=== PATIENT | female | born 1990 | race African-American/Black ===

== ENCOUNTER 2016-11-08 05:44 | Emergency (ER) | payer BC, OTHER ==
[2016-11-08 06:19] LABS: #Basophils 0.1 thou/uL (0.0-0.2); #Eosinphils 0.4 thou/uL (0.0-0.7); #Lymphocytes 1.9 thou/uL (1.20-3.40); #Monocytes 0.6 thou/uL (0.11-0.59); #Neutrophils 2.6 thou/uL (1.40-6.50); %Basophils 1.4 % (0.0-1.0); %Eosinophils 7.2 % (0.0-10.0); %Lymphocytes 33.4 % (21.0-51.0); %Monocytes 10.5 % (0.0-10.0); Mean Platelet Volume 6.8 fL (7.4-10.4); Red Blood Cell (RBC) Count 4.53 mill/uL (4.20-5.40); White Blood Cell (WBC) Count 5.5 thou/uL (4.8-10.8)
[2016-11-08 06:20] LABS: Crenated RBC SLIGHT = 1-5 cells (100X) (None Seen); Elliptocytes SLIGHT = 2-5 cells (100X) (0-1/hpf); Microcytosis SLIGHT = 6-15 cells (100X) (0-5/hpf); Ovalocytes SLIGHT = 2-5 cells (100X) (0-1/hpf); Tear Drops SLIGHT = 2-5 cells (100X) (0-1/hpf)
[2016-11-08 06:23] LABS: Bacteria/HPF Rare-Few HPF (None Seen); Bilirubin Negative (Negative); Blood, Urine Negative (Negative); Glucose, Urine (Dipstick) Negative (Negative); Ketone, Urine Negative (Negative); Nitrite Negative (Negative); Protein, Urine (Dipstick) Negative (Neg-Trace); RBC/HPF None Seen HPF (0-3); Squamous Epithelial 0-3 HPF (0-3); Urobilinogen 0.2 mg/dL (0.2-1.0)
[2016-11-08] MEDS ORDERED: Cephalexin 500 MG CAP ONE (06:52)
== END 2016-11-08 06:55 | disposition home or self-care (01) ==
LOC: NAV ERS 05:44
DX: O20.9 Hemorrhage in early pregnancy, unspecified (principal); O23.41 Unspecified infection of urinary tract in pregnancy, first trimester; Z3A.09 9 weeks gestation of pregnancy
CPT/HCPCS: 36415; 81003; 81015; 84702; 85025; 99284

== ENCOUNTER 2017-07-16 16:16 | Emergency (ER) | payer OTHER ==
[2017-07-16 16:43] LABS: #Basophils 0.1 thou/uL (0.0-0.2); #Eosinphils 0.3 thou/uL (0.0-0.7); #Lymphocytes 1.9 thou/uL (1.20-3.40); #Monocytes 0.5 thou/uL (0.11-0.59); #Neutrophils 2.3 thou/uL (1.40-6.50); %Basophils 1.5 % (0.0-1.0); %Eosinophils 5.8 % (0.0-10.0); %Lymphocytes 36.9 % (21.0-51.0); %Neutrophils 45.8 % (42.0-75.0); Hemoglobin 10.5 g/dL (12.0-16.0); Mean Corpuscular HGB CONC 29.5 g/dL (32.0-36.0); Mean Corpuscular Hemoglobin 23.7 pg (27.0-31.0); Mean Corpuscular Volume 80.5 fl (81.0-99.0); Mean Platelet Volume 7.5 fL (7.4-10.4); Platelet Count 264 thou/uL (130-400); RBC Distribution Width 14.5 % (11.5-14.5); White Blood Cell (WBC) Count 5.1 thou/uL (4.8-10.8)
== END 2017-07-16 17:02 | disposition home or self-care (01) ==
LOC: NAV ERS 16:16
DX: O90.81 Anemia of the puerperium (principal)
CPT/HCPCS: 85025; 99284

== ENCOUNTER 2018-01-07 09:34 | Emergency (ER) | payer OTHER ==
[2018-01-07] MEDS ORDERED: cefTRIAXone\\ROCEPHIN 250 MG VIAL ONE (10:17)
[2018-01-07] MEDS ORDERED: Azithromycin 250 MG TAB ONE (10:17)
[2018-01-07] MEDS ORDERED: cefTRIAXone\\ROCEPHIN 1 GM VIAL ONE (10:18)
[2018-01-07] MEDS ORDERED: Lidocaine 1% 20 ML MDV ONE (10:19)
[2018-01-07 10:39] LABS: Bilirubin Negative (Negative); Blood, Urine Small (Negative); Clarity Slightly Cloudy (Clear); Glucose, Urine (Dipstick) Negative (Negative); Leukocyte Trace (Negative); Nitrite Negative (Negative); Protein, Urine (Dipstick) Negative (Neg-Trace); Urobilinogen 0.2 mg/dL (0.2-1.0)
[2018-01-07 10:48] LABS: Bacteria/HPF 2+ HPF (None Seen); RBC/HPF 0-3 HPF (0-3)
[2018-01-07 18:10] LABS: HIV (1/2) Antibody/Antigen Non-Reactive (NonReactive); HIV 1/2 INDEX 0.06 S/CO (<1.00)
== END 2018-01-07 11:07 | disposition home or self-care (01) ==
LOC: NAV ERS 09:34
DX: H65.02 Acute serous otitis media, left ear (principal); Z20.2 Contact with and (suspected) exposure to infections with a predominantly sexual mode of transmission
CPT/HCPCS: 81003; 81015; 87389; 96372; J0696; J2001

== ENCOUNTER 2018-06-06 19:16 | Emergency (ER) | payer OTHER, SELFPAY ==
[2018-06-06] MEDS ORDERED: Ibuprofen 800 MG TAB ONE (19:46)
--- NOTE | 2018-06-06 20:21 | RAD ---
TWO VIEW CHEST: INDICATIONS: Left chest pain. COMPARISON: 02/15/2016 FINDINGS: There is added density of the lower chest wall bilaterally, on the frontal view, likely relating to o verlying body wall soft tissues. No obvious consolidation or effusion by lateral projection. The ca rdiac silhouette is stable. IMPRESSION: No definite acute process. POS: [facility]
== END 2018-06-06 20:25 | disposition home or self-care (01) ==
LOC: NAV ERS 19:16
DX: R07.9 Chest pain, unspecified (principal)
CPT/HCPCS: 71046; 93005

== ENCOUNTER 2018-06-08 20:50 | Emergency (ER) | payer SELFPAY ==
[2018-06-08 21:21] LABS: Bilirubin Small (Negative); Blood, Urine Negative (Negative); Clarity Clear (Clear); Glucose, Urine (Dipstick) Negative (Negative); Leukocyte Negative (Negative); Nitrite Negative (Negative); Protein, Urine (Dipstick) Negative (Neg-Trace); Specific Gravity, Urine 1.025 (1.005-1.030)
[2018-06-08 21:23] LABS: Pregnancy Test - Urine (BHCG) Negative (Negative); Pregu Control Background? CLEAR/WHITE (CLR/WHITE); Pregu Control Bar Appear? YES (CONTROL BAR); Specific Gravity 1.025 (1.002-1.036)
[2018-06-08 21:59] LABS: Hemoglobin 11.9 g/dL (12.0-16.0); Mean Corpuscular HGB CONC 30.2 g/dL (32.0-36.0); Mean Corpuscular Hemoglobin 23.3 pg (27.0-31.0); Mean Corpuscular Volume 77.1 fL (78.0-98.0); Mean Platelet Volume 8.2 fL (7.4-10.4); Platelet Count 334 thou/uL (130-400); RBC Distribution Width 14.8 % (11.5-14.5); White Blood Cell (WBC) Count 6.1 thou/uL (4.8-10.8)
[2018-06-08 22:02] LABS: ALT (SGPT) 15 U/L (8-55); AST (SGOT) 15 U/L (5-34); Albumin 4.4 g/dL (3.5-5.0); Alkaline Phosphatase 94 U/L (40-150); Anion Gap 13 mmol/L (10-20); BUN (Urea Nitrogen) 11 mg/dL (7.0-18.7); Bilirubin, Total 0.4 mg/dL (0.2-1.2); Calc. Creatinine Clearance 0 mL/min (70-130); Carbon Dioxide 28 mmol/L (22-29); Chloride 104 mmol/L (98-107); Estimated GFR-MDRD Greater than 90; Globulin 3.4 g/dL (2.4-3.5); Glucose 96 mg/dL (70-105); Lipase 19 U/L (8-78); Magnesium 2.2 mg/dL (1.6-2.6); Potassium 3.5 mmol/L (3.5-5.1); Protein, Total 7.8 g/dL (6.0-8.3); Sodium 141 mmol/L (136-145)
[2018-06-08 22:07] LABS: Eosinophils 5 % (0-10); Lymphocytes 36 % (21-51); MDiff Complete? YES; Microcytosis SLIGHT = 6-15 cells (100X) (0-5/hpf); Monocytes 3 % (0-10); Neutrophil 54 % (42-75); PLT Morphology Comment Appears Adequate
== END 2018-06-08 22:15 | disposition home or self-care (01) ==
LOC: NAV ERS 20:50
DX: R53.83 Other fatigue (principal); D64.9 Anemia, unspecified
CPT/HCPCS: 36416; 80053; 81003; 81025; 83690; 83735; 84443; 85025; 93005

== ENCOUNTER 2018-10-11 19:31 | Emergency (ER) | payer SELFPAY ==
[2018-10-11 20:05] LABS: Bilirubin Negative (Negative); Blood, Urine Negative (Negative); Clarity Clear (Clear); Glucose, Urine (Dipstick) Negative (Negative); Leukocyte Negative (Negative); Nitrite Negative (Negative); Protein, Urine (Dipstick) Negative (Neg-Trace); Urobilinogen 0.2 mg/dL (0.2-1.0)
[2018-10-11 20:27] LABS: #Basophils 0.2 thou/uL (0.0-0.2); #Eosinphils 0.2 thou/uL (0.0-0.7); #Lymphocytes 3.1 thou/uL (1.20-3.40); #Monocytes 0.7 thou/uL (0.11-0.59); #Neutrophils 3.5 thou/uL (1.40-6.50); %Basophils 2.7 % (0.0-1.0); %Eosinophils 2.3 % (0.0-10.0); %Lymphocytes 40.4 % (21.0-51.0); %Monocytes 8.8 % (0.0-10.0); %Neutrophils 45.7 % (42.0-75.0); Hemoglobin 12.2 g/dL (12.0-16.0); Mean Corpuscular HGB CONC 31.5 g/dL (32.0-36.0); Mean Corpuscular Hemoglobin 24.1 pg (27.0-31.0); Mean Corpuscular Volume 76.4 fL (78.0-98.0); Mean Platelet Volume 7.7 fL (7.4-10.4); Platelet Count 323 thou/uL (130-400); RBC Distribution Width 14.5 % (11.5-14.5); Red Blood Cell (RBC) Count 5.05 mill/uL (4.20-5.40); White Blood Cell (WBC) Count 7.7 thou/uL (4.8-10.8)
[2018-10-11 20:29] LABS: ALT (SGPT) 15 U/L (8-55); AST (SGOT) 17 U/L (5-34); Albumin 4.1 g/dL (3.5-5.0); Alkaline Phosphatase 72 U/L (40-150); Anion Gap 13 mmol/L (10-20); BUN (Urea Nitrogen) 16 mg/dL (7.0-18.7); Bilirubin, Total 0.3 mg/dL (0.2-1.2); Calc. Creatinine Clearance 0 mL/min (70-130); Calcium 9.9 mg/dL (7.8-10.44); Carbon Dioxide 22 mmol/L (22-29); Chloride 106 mmol/L (98-107); Estimated GFR-MDRD Greater than 90; Globulin 3.1 g/dL (2.4-3.5); Glucose 90 mg/dL (70-105); Protein, Total 7.2 g/dL (6.0-8.3); Sodium 137 mmol/L (136-145)
== END 2018-10-11 20:47 | disposition home or self-care (01) ==
LOC: NAV ERS 19:31
DX: R42 Dizziness and giddiness (principal); T50.5X5A Adverse effect of appetite depressants, initial encounter; D64.9 Anemia, unspecified; Z79.899 Other long term (current) drug therapy
CPT/HCPCS: 80053; 81003; 85025; 99284

== ENCOUNTER 2019-11-06 17:47 | Emergency (ER) | payer SELFPAY ==
[2019-11-06] MEDS ORDERED: Ibuprofen 800 MG TAB ONE (17:56)
== END 2019-11-06 18:13 | disposition home or self-care (01) ==
LOC: NAV ERS 17:47
DX: J11.1 Influenza due to unidentified influenza virus with other respiratory manifestations (principal); D64.9 Anemia, unspecified
CPT/HCPCS: 99283

== ENCOUNTER 2020-08-06 17:24 | Emergency (ER) | payer SELFPAY ==
[2020-08-07 02:45] LABS: SARS-CoV-2 MS2 Positive; SARS-CoV-2 N Gene Positive; SARS-CoV-2 S Gene Positive; SARS-CoV-2 by NAA DETECTED (NotDetected); SARS-CoV-2 orf1ab Positive
== END 2020-08-06 18:00 | disposition home or self-care (01) ==
LOC: NAV ERS 17:24
DX: U07.1 COVID-19 (principal); H10.33 Unspecified acute conjunctivitis, bilateral; D64.9 Anemia, unspecified
CPT/HCPCS: 87635; 99284; U0003